=== PATIENT | female | born 1960 ===

== ENCOUNTER 2018-06-16 16:21 | Inpatient (IN) | payer MEDICAID ==
--- NOTE | 2018-07-07 17:28 | CP.PCM.HP ---
<Blane Bowles - Last Filed: 07/07/18 17:48> History of Present Illness - History of Present Illness History of Present Illness: Admission: 48 hour video EEG HPI: 57 y/o woman w/ pmh of HTN presents for 48 hour video EEG monitoring. Patient reports 3-4 months of left sided-weakness, paresthesia, and slurred speech. Patient was initially worked up for stroke but all stroke work-up was negative; however, symptoms persist. Patient reports adherence to BP medication and BP is controlled. Patient denies any headaches, chest pain, dizziness, dyspnea, abdominal pain, nausea, vomiting, diarrhea, dysuria, or fever. PMD: Dr. Bahena Neuro: Dr. Harris PMH: HTN meds: amlodipine 10 mg PO daily, lisinopril 20 mg PO daily PSH: denies Fam Hx: stroke in mother and maternal grandmother; father had [place] Soc: denies smoking, alcohol, or drugs ROS: 12 points assessed and negative unless otherwise reported in HPI Present on Admission - Present on Admission Any Indicators Present on Admission: No History of DVT/PE: No History of Uncontrolled Diabetes: No Urinary Catheter: No Decubitus Ulcer Present: No Review of Systems - Review of Systems All systems: reviewed and no additional remarkable complaints except - Constitutional Constitutional: absent: Fever, Headache - EENT Eyes: absent: Change in Vision - Cardiovascular Cardiovascular: absent: Chest Pain - Respiratory Respiratory: absent: Cough, Dyspnea - Gastrointestinal Gastrointestinal: absent: Abdominal Pain, Diarrhea, Nausea, Vomiting - Genitourinary Genitourinary: absent: Dysuria - Integumentary Integumentary: absent: Rash - Neurological Neurological: absent: Dizziness, Headaches Meds Allergies/Adverse Reactions: Allergies Allergy/AdvReac Type Severity Reaction Status Date / Time apple Allergy Unknown ITCHING Verified 07/07/18 17:33 man Allergy ITCHING Verified 07/07/18 17:38 nut - unspecified Allergy ITCHING Verified 07/07/18 17:38 peach Allergy ITCHING Verified 07/07/18 17:38 peanut Allergy ITCHING Verified 07/07/18 17:38 pear Allergy ITCHING Verified 07/07/18 17:38 plum Allergy ITCHING Verified 07/07/18 17:38 Physical Exam - Constitutional Appears: Well, Non-toxic, No Acute Distress - Head Exam Head Exam: ATRAUMATIC, NORMAL INSPECTION, NORMOCEPHALIC - Eye Exam Eye Exam: EOMI, Normal appearance, PERRL - ENT Exam ENT Exam: Mucous Membranes Moist - Neck Exam Neck exam: Positive for: Full Rom. Negative for: Tenderness - Respiratory Exam Respiratory Exam: Clear to Auscultation Bilateral, NORMAL BREATHING PATTERN. absent: Rhonchi, Wheezes, Respiratory Distress - Cardiovascular Exam Cardiovascular Exam: REGULAR RHYTHM, RRR, +S1, +S2. absent: Tachycardia - GI/Abdominal Exam GI & Abdominal Exam: Normal Bowel Sounds, Soft. absent: Distended, Tenderness - Extremities Exam Extremities exam: Positive for: normal inspection. Negative for: calf tenderness - Neurological Exam Neurological exam: Alert, CN II-XII Intact, Normal Gait, Oriented x3 - Skin Skin Exam: Dry, Intact, Normal Color, Warm Assessment & Plan - Assessment and Plan (Free Text) Assessment: 57 y/o woman w/ pmh of HTN presents for 48 hour video EEG monitoring Plan: Left-sided weakness/paresthesia - afebrile, non-tachycardic, normotensive - 48 hour video EEG - heart healthy diet - vitals Q8h - monitor for acute changes HTN - c/w home medications: amlodipine 10 mg PO daily, lisinopril 20 mg PO daily Prophylactic measures - SCDs <Clarisa Hedrick - Last Filed: 07/07/18 19:44> Results - Vital Signs Recent Vital Signs: Last Vital Signs Temp Pulse 72 07/07/18 18:59 Resp 16 07/07/18 18:59 BP Pulse Ox 100 07/07/18 18:59 Attending/Attestation - Attestation I have personally seen and examined this patient.: Yes I have fully participated in the care of the patient.: Yes I have reviewed all pertinent clinical information: Yes Notes (Text): 07/07/18 19:44 Agree with findings and plan as above.
[2018-07-07 17:39] VITALS: BMI 28.6
--- NOTE | 2018-07-08 07:10 | CP.PCM.PN ---
Subjective - Date & Time of Evaluation Date of Evaluation: 07/08/18 Time of Evaluation: 09:45 - Subjective Subjective: Patient seen and examined this morning at bedside. There are no acute events overnight, NAD. Patient laying in bed comfortably and watching television. Patient has no complaints. Objective - Vital Signs/Intake and Output Vital Signs (last 24 hours): Temp Pulse Resp BP Pulse Ox 98.2 F 65 12 126/62 99 07/08/18 04:00 07/08/18 06:00 07/08/18 06:00 07/08/18 06:00 07/08/18 06:00 - Medications Medications: Current Medications Amlodipine Besylate (Norvasc) 10 mg PO DAILY [facility] Lisinopril (Zestril) 20 mg PO DAILY [facility] - Constitutional Appears: Non-toxic, No Acute Distress - Head Exam Head Exam: ATRAUMATIC, NORMAL INSPECTION, NORMOCEPHALIC - Eye Exam Eye Exam: Normal appearance - ENT Exam ENT Exam: Mucous Membranes Moist - Neck Exam Neck Exam: Full ROM. absent: Tenderness - Respiratory Exam Respiratory Exam: Clear to Ausculation Bilateral, NORMAL BREATHING PATTERN. absent: Decreased Breath Sounds, Rales, Rhonchi, Wheezes, Respiratory Distress - Cardiovascular Exam Cardiovascular Exam: REGULAR RHYTHM, RRR, +S1, +S2. absent: Tachycardia - Extremities Exam Extremities Exam: Normal Inspection. absent: Calf Tenderness - Neurological Exam Neurological Exam: Alert, Awake, Oriented x3 - Skin Skin Exam: Dry, Normal Color, Warm Assessment and Plan - Assessment and Plan (Free Text) Assessment: 57 y/o woman w/ pmh of HTN presents for 48 hour video EEG monitoring Plan: Left-sided weakness/paresthesia - afebrile, non-tachycardic, normotensive - VEEG thus far normal - c/w 48 hour video EEG - heart healthy diet - vitals Q8h - monitor for acute changes HTN - c/w home medications: amlodipine 10 mg PO daily, lisinopril 20 mg PO daily Prophylactic measures - SCDs
--- NOTE | 2018-07-08 10:18 | PCM.VEEG ---
Video EEG - Procedure Start Date: 07/07/18 Start Time: 18:15 End Date: 07/08/18 End Time: 09:20 Technical Summary: DATA ACQUISITION: This was a multichannel inpatient video-EEG, a minimum of 22 channels were uti lized, performed in accordance with recommendations specified by the [place] [employer] (Marin Tafoya et al. ACNS Guideline 1: Minimum Technical Requirements for Performing Clinical Electroencephalography. Journal of Clinical Neurophysiology 2016;33:303-7). The 10-20 electrode placement system was utilized in accordance with guidelines detailed by the International Federation of Clinical Neurophysiology (Dayana Roberson et al. The Ten-Twenty Electrode System of the International Federation. Recommendations for the Practice of Clinical Neurophysiology: Guidelines of the International Federation of Clinical Physiology 1999; EEG Suppl. 52.). DATA REVIEW / SPIKE DETECTION / DIGITAL ANALYSIS: The entire EEG was scanned and reviewed. Synchronized audio and video recording were reviewed at the time of each alarm and whenever an abnormality or suspicious activity was noted. The entire recording was analyzed utilizing an automated digital spike and seizure analysis program and all automatic spike and seizure detections were manually reviewed. A compressed spectral array was displayed and reviewed alongside the raw EEG tracings. In addition, further analysis of the EEG was performed when abnormalities were identified, including montage changes, dipole source localization, and frequency band identification. This study was attended 24 hours per day. - Interpretation Description of the study: Indication; events characterization EEG Finding during wakefulness: During active states, the EEG was characterized by 14-25 Hz, 15-30 uV activity bilaterally in fronto-central regions. Resting wakefulness was characterized by a symmetric posterior dominant rhythm of 9 to 10 Hz, 30-50 uV, which was reactive to eye opening and closing. Drowsiness was associated with slow roving eye movements, slowing and fragmentation of the posterior dominant rhythm, and bilateral 4-7 Hz, 40-70 uV theta activity, sometimes with a shifting predominance. Hyperventilation and photic stimulation were not performed. EEG Finding during sleep: Light sleep was recorded and was characterized by fronto-central slowing at 5-7 H, 50-125 uV, sharp central vertex waves, bilateral sleep spindles, and K- complexes; shifting asymmetries were evident. Deeper stages of sleep were recorded and were characterized an increasing frequency of 1-4 Hz, 50-100 uV delta activity. REM sleep was also recorded and was characterized by mixed frequency (3-15 Hz) low voltage (< 20 uV) activity with clusters of rapid horizontal and vertical eye movements. There were no significant asymmetries noted during sleep. Interictal non-epileptiform abnormalities: None Interictal epileptiform abnormalities: None Ictal epileptiform abnormalities: None There were 2 PB activations; 18;26, 19;30 probably accidental, no EEG changes. She reported dizziness twice 10 PM and 8 AM, no EEG changes - Impression Impression: This is a normal Video EEG monitoring study.
--- NOTE | 2018-07-08 16:42 | CP.PCM.CON ---
History of Present Illness - History of Present Illness History of Present Illness: Neurology Consultation Note: Consult requested by Dr. Clarisa Hedrick Mrs. Shen is a 57-year-old woman, with a past medical history of HTN, who is here for evaluation of possible seizure disorder with 48 hour VEEG monitoring. Review of Systems - Review of Systems All systems: reviewed and no additional remarkable complaints except Past Patient History - Past Medical History & Family History Past Medical History?: Yes - Past Social History Smoking Status: Never Smoked - CARDIAC Hx Cardiac Disorders: Yes Hx Hypertension: Yes - PULMONARY Hx Respiratory Disorders: No - NEUROLOGICAL Hx Neurological Disorder: No - HEENT Hx HEENT Problems: No - RENAL Hx Chronic Kidney Disease: No - ENDOCRINE/METABOLIC Hx Endocrine Disorders: No - HEMATOLOGICAL/ONCOLOGICAL Hx Blood Disorders: No Hx AIDS: No Hx Human Immunodeficiency Virus (HIV): No - INTEGUMENTARY Hx Dermatological Problems: No - MUSCULOSKELETAL/RHEUMATOLOGICAL Hx Musculoskeletal Disorders: No Hx Falls: No - GASTROINTESTINAL Hx Gastrointestinal Disorders: No - GENITOURINARY/GYNECOLOGICAL Hx Genitourinary Disorders: No - PSYCHIATRIC Hx Psychophysiologic Disorder: No Hx Substance Use: No - SURGICAL HISTORY Hx Surgeries: Yes Hx Hysterectomy: Yes - ANESTHESIA Hx Anesthesia: Yes Hx Anesthesia Reactions: No Meds Allergies/Adverse Reactions: Allergies Allergy/AdvReac Type Severity Reaction Status Date / Time apple Allergy Unknown ITCHING Verified 07/07/18 17:33 man Allergy ITCHING Verified 07/07/18 17:38 nut - unspecified Allergy ITCHING Verified 07/07/18 17:38 peach Allergy ITCHING Verified 07/07/18 17:38 peanut Allergy ITCHING Verified 07/07/18 17:38 pear Allergy ITCHING Verified 07/07/18 17:38 plum Allergy ITCHING Verified 07/07/18 17:38 - Medications Medications: Current Medications Amlodipine Besylate (Norvasc) 10 mg PO DAILY [facility] Last Admin: 07/08/18 09:26 Dose: 10 mg Lisinopril (Zestril) 20 mg PO DAILY [facility] Last Admin: 07/08/18 09:27 Dose: 20 mg Physical Exam - Constitutional Appears: Well - Head Exam Head Exam: ATRAUMATIC, NORMAL INSPECTION, NORMOCEPHALIC - Eye Exam Eye Exam: EOMI, Normal appearance, PERRL Pupil Exam: NORMAL ACCOMODATION, PERRL - ENT Exam ENT Exam: Mucous Membranes Moist, Normal Exam - Neck Exam Neck exam: Positive for: Normal Inspection - Respiratory Exam Respiratory Exam: Clear to Auscultation Bilateral, NORMAL BREATHING PATTERN - Cardiovascular Exam Cardiovascular Exam: REGULAR RHYTHM - GI/Abdominal Exam GI & Abdominal Exam: Normal Bowel Sounds, Soft. absent: Tenderness - Extremities Exam Extremities exam: Positive for: normal inspection - Back Exam Back exam: NORMAL INSPECTION - Neurological Exam Neurological exam: Alert, CN II-XII Intact, Normal Gait, Oriented x3, Reflexes Normal - Psychiatric Exam Psychiatric exam: Normal Affect, Normal Mood - Skin Skin Exam: Dry, Intact, Normal Color, Warm Results - Vital Signs Recent Vital Signs: Last Vital Signs Temp 98.6 F 07/08/18 16:00 Pulse 72 07/08/18 16:00 Resp 14 07/08/18 16:00 BP 116/49 L 07/08/18 16:00 Pulse Ox 100 07/08/18 16:00 Assessment & Plan (1) Seizure Assessment and Plan: So far there are no reported seizures on VEEG. Will continue monitoring for another 24 hours and then DC for outpatient follow-up. Thank you. Status: Acute
--- NOTE | 2018-07-09 07:08 | CP.PCM.PN ---
Objective - Vital Signs/Intake and Output Vital Signs (last 24 hours): Temp Pulse Resp BP Pulse Ox 98.3 F 62 14 101/61 89 L 07/09/18 00:00 07/09/18 06:00 07/09/18 06:00 07/09/18 06:00 07/09/18 06:00 Intake and Output: 07/09/18 07/09/18 06:59 18:59 Intake Total 250 Balance 250 - Medications Medications: Current Medications Amlodipine Besylate (Norvasc) 10 mg PO DAILY [facility] Last Admin: 07/08/18 09:26 Dose: 10 mg Lisinopril (Zestril) 20 mg PO DAILY [facility] Last Admin: 07/08/18 09:27 Dose: 20 mg
--- NOTE | 2018-07-09 10:46 | PCM.VEEG ---
Video EEG - Procedure Start Date: 07/08/18 Start Time: 09:20 End Date: 07/09/18 End Time: 09:45 Technical Summary: DATA ACQUISITION: This was a multichannel inpatient video-EEG, a minimum of 22 channels were uti lized, performed in accordance with recommendations specified by the [place] [employer] (Marin Tafoya et al. ACNS Guideline 1: Minimum Technical Requirements for Performing Clinical Electroencephalography. Journal of Clinical Neurophysiology 2016;33:303-7). The 10-20 electrode placement system was utilized in accordance with guidelines detailed by the International Federation of Clinical Neurophysiology (Dayana Roberson et al. The Ten-Twenty Electrode System of the International Federation. Recommendations for the Practice of Clinical Neurophysiology: Guidelines of the International Federation of Clinical Physiology 1999; EEG Suppl. 52.). DATA REVIEW / SPIKE DETECTION / DIGITAL ANALYSIS: The entire EEG was scanned and reviewed. Synchronized audio and video recording were reviewed at the time of each alarm and whenever an abnormality or suspicious activity was noted. The entire recording was analyzed utilizing an automated digital spike and seizure analysis program and all automatic spike and seizure detections were manually reviewed. A compressed spectral array was displayed and reviewed alongside the raw EEG tracings. In addition, further analysis of the EEG was performed when abnormalities were identified, including montage changes, dipole source localization, and frequency band identification. This study was attended 24 hours per day. - Interpretation Description of the study: Indication; events characterization EEG Finding during wakefulness: During active states, the EEG was characterized by 14-25 Hz, 15-30 uV activity bilaterally in fronto-central regions. Resting wakefulness was characterized by a symmetric posterior dominant rhythm of 9 to 10 Hz, 30-50 uV, which was reactive to eye opening and closing. Drowsiness was associated with slow roving eye movements, slowing and fragmentation of the posterior dominant rhythm, and bilateral 4-7 Hz, 40-70 uV theta activity, sometimes with a shifting predominance. Hyperventilation and photic stimulation were not performed There was intermittent sharply contoured slowing left temporal more than right, that was not epileptiform. EEG Finding during sleep: Light sleep was recorded and was characterized by fronto-central slowing at 5-7 H, 50-125 uV, sharp central vertex waves, bilateral sleep spindles, and K- complexes; shifting asymmetries were evident. Deeper stages of sleep were recorded and were characterized an increasing frequency of 1-4 Hz, 50-100 uV delta activity. REM sleep was also recorded and was characterized by mixed frequency (3-15 Hz) low voltage (< 20 uV) activity with clusters of rapid horizontal and vertical eye movements. There were no significant asymmetries noted during sleep. Interictal non-epileptiform abnormalities: NOne Interictal epileptiform abnormalities: None Ictal epileptiform abnormalities: NO seizures Patient reported multiple episodes of dizziness that show no EEG correlate - Impression Impression: This is a normal impatient video EEG monitoring study. There multiple episodes of dizziness that showed no EEG correlate.
--- NOTE | 2018-07-09 11:03 | CP.PCM.DIS ---
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 The patient completed 48 hour video EEG which was unremarkable. The patient had no complaints during video EEG duration. The patient has been seen, examined, and deemed medically fit for discharge. The patient is to follow up as an outpatient w/ her neurologist Dr. Harris. Discharge Exam - Head Exam Head Exam: ATRAUMATIC, NORMAL INSPECTION, NORMOCEPHALIC - Eye Exam Eye Exam: EOMI, Normal appearance, PERRL - ENT Exam ENT Exam: Mucous Membranes Moist - Neck Exam Neck exam: Full Rom - Respiratory Exam Respiratory Exam: Clear to PA & Lateral, NORMAL BREATHING PATTERN, UNREMARKABLE. absent: Decreased Breath Sounds, Rales, Rhonchi, Wheezes, Respiratory Distress - Cardiovascular Exam Cardiovascular Exam: REGULAR RHYTHM, RRR, +S1, +S2. absent: Tachycardia - Extremities Exam Extremities exam: normal inspection - Neurological Exam Neurological exam: Alert, CN II-XII Intact, Normal Gait, Oriented x3 Additional comments: chronic left sided weakness and chronic mild speech slurring - Skin Skin Exam: Dry, Intact, Normal Color, Warm Discharge Plan - Follow Up Plan Condition: GOOD Disposition: HOME/ ROUTINE Referrals: Rosamaria Bahena MD [Primary Care Provider] -
[2018-07-09 12:18] VITALS: TEMP 98.5; O2SAT 100
[2018-07-09 14:41] VITALS: BP 125/58; PULSE 78; RESP 16
== END 2018-07-09 16:40 | disposition home or self-care (01) | DRG 890 ==
LOC: H.ICU/CCU 07-07 17:45
PROVIDERS: ADMIT Student in an Organized Health Care Education/Training Program; ATTEND Student in an Organized Health Care Education/Training Program
PROC: 4A10X4Z Monitoring of Central Nervous Electrical Activity, External Approach (ICD-10-PCS; principal; 2018-07-08)
PROC: 4A10X4Z Monitoring of Central Nervous Electrical Activity, External Approach (ICD-10-PCS; 2018-07-09)
DX: G40.109 Localization-related (focal) (partial) symptomatic epilepsy and epileptic syndromes with simple partial seizures, not intractable, without status epilepticus (principal); I10 Essential (primary) hypertension; Z82.3 Family history of stroke; Z82.49 Family history of ischemic heart disease and other diseases of the circulatory system; R47.81 Slurred speech; R20.2 Paresthesia of skin